=== PATIENT | female | born 1985 | race Caucasian/White ===

== ENCOUNTER → 2019-09-21 | Outpatient (CLI) | payer BC ==
--- NOTE | 2019-09-21 16:30 | US ---
EXAMINATION TYPE: US pelvis complete transvag DATE OF EXAM: 09/21/2019 COMPARISON: NONE CLINICAL HISTORY: R10.2 Pelvic pain, N92.1 Menorrhagia. TECHNIQUE: . Transabdominal sonographic images of the pelvis were acquired. Transvaginal sonographi c images were medically necessary to better assess the following anatomy: Uterus and ovaries Date of LMP: 1 month ago EXAM MEASUREMENTS: Uterus: 7.2 x 3.4 x 3.9 cm Endometrial Stripe: 1.3 cm Right Ovary: 3.9 x 1.8 x 2.0 cm Left Ovary: 3.0 x 2.1 x 2.1 cm 1. Uterus: Anteverted wnl 2. Endometrium: wnl 3. Right Ovary: Cystic area measuring 2.1 x 1.5 x 1.3 cm 4. Left Ovary: Cystic area visualized measuring 1.2 x 1.1 x 1.2 cm 5. Bilateral Adnexa: wnl 6. Posterior cul-de-sac: Small amount of free fluid visualized IMPRESSION: 1. Bilateral ovarian cysts.
== END | disposition home or self-care (01) ==
LOC: RADUSWWP 15:27
PROVIDERS: ATTEND Obstetrics & Gynecology
DX: N83.201 Unspecified ovarian cyst, right side (principal); N83.202 Unspecified ovarian cyst, left side
CPT/HCPCS: 76830; 76856